=== PATIENT | female | born 1980 | race Caucasian/White ===

== ENCOUNTER → 2022-05-12 | Outpatient (CLI) | payer BC ==
--- NOTE | 2022-05-12 10:46 | CA ---
Exercise Stress Test Report Name: GIULIANO EASLEY Exam Date: 05/12/2022 09:04 Exam Location: [place] Stress Ht (in): 64 Wt (lb): 166 BSA: 1.81 Ordering Phys: Suri Santos MD Referring Phys: Camelia Lovell Technologist: Margarita Reyes RDCS Age: 42 Gender: F : 1980 Procedure CPT: Indications: R00.2 palpitations ICD-10 Codes: Patient History: Family Hx Medications: Meds past 24 hrs: Pretest Chest Pain: STRESS TEST Gerardo Protocol Exercise Duration (min:sec): 10:[address] Depressions (mm): 0 Angina Score: 0 Jalloh Score: 10.5 Resting HR (bpm): 74 Peak HR (bpm): 168 Resting BP (mmHg): 135 / 88 Peak BP (mmHg): 189 / 73 MPHR: 176 Target HR: 150 % MPHR: 95 METS: 12.1 Total Dose: Peak Dose: Atropine: Double Product: 95286 BP Response: Stress Termination: Reached target heart rate Stress Symptoms: Stress Summary: ECG ANALYSIS Resting ECG: Sinus rhythm. Normal conduction. No arrhythmias. Normal repolarization. Stress ECG: No ECG evidence of ischemia with exercise. CONCLUSIONS Patient falls into low-risk group (DTS >= +5). This associates the patient with an annual CV mortality <= 0.5%. 1. Good exercise tolerance 2. Rare PVCs 3. Normal electrocardiographic response to exercise with no evidence of exercised induced ischemia Dr. Nenita Wheatley MD (Electronically Signed) Final Date: 12 May 2022 10:46
== END | disposition home or self-care (01) ==
LOC: RADNMMAIN 08:38
PROVIDERS: ATTEND Family Medicine
DX: I49.3 Ventricular premature depolarization (principal)
CPT/HCPCS: 93017